=== PATIENT | male | born 1980 | race Caucasian/White ===

== ENCOUNTER 2017-07-30 02:50 | Emergency (ER) | payer SELFPAY ==
[~2017-07-30] VITALS: Ht 185.4 cm; Wt 105.6 kg
[2017-07-30 02:51] VITALS: BP 149/95
[2017-07-30 04:44] LABS: BASOPHILS # (AUTO) 0.02 x10^3/uL (0-0.1); BASOPHILS % (AUTO) 0 % (0-1); EOSINOPHILS # (AUTO) 0.19 x10^3/uL (0-0.4); EOSINOPHILS % (AUTO) 3 % (1-7); LYMPHOCYTES # (AUTO) 1.41 x10^3/uL (1-3.4); LYMPHOCYTES % (AUTO) 23 % (22-44); MD NO; MEAN CORPUSCULAR HEMOGLOBIN 27.3 pg (27.5-34.5); MEAN CORPUSCULAR HGB CONC 33.4 g/dL (33.2-36.2); MEAN CORPUSCULAR VOLUME 81.7 fL (81-97); MEAN PLATELET VOLUME 7.5 fL (7.4-10.4); MONOCYTES % (AUTO) 6 % (2-9); NEUTROPHILS # (AUTO) 4.25 x10^3/uL (1.8-6.8); NEUTROPHILS % (AUTO) 68 % (42-75); PLATELET COUNT 257 x10^3/uL (130-400); RED BLOOD COUNT 4.68 x10^6/uL (4.38-5.82)
[2017-07-30 04:53] LABS: ALANINE AMINOTRANSFERASE 143 U/L (12-78); ALBUMIN 3.5 g/dL (3.4-5.0); ANION GAP 6 mmol/L (5-15); CALCIUM 8.6 mg/dL (8.5-10.1); CHLORIDE 102 mmol/L (98-107); CREATININE 0.88 mg/dL (0.7-1.3)
[2017-07-30 04:55] LABS: ALKALINE PHOSPHATASE 82 U/L (45-117); BILIRUBIN,TOTAL 1.1 mg/dL (0.2-1.0); TOTAL PROTEIN 7.3 g/dL (6.4-8.2)
== END 2017-07-30 06:11 | disposition home or self-care (01) ==
LOC: ED 06:00
DX: T69.029A Immersion foot, unspecified foot, initial encounter (principal); M79.671 Pain in right foot; R60.0 Localized edema; X58.XXXA Exposure to other specified factors, initial encounter; Y93.89 Activity, other specified; Y92.89 Other specified places as the place of occurrence of the external cause; Y99.8 Other external cause status
CPT/HCPCS: 36415; 71046; 80053; 85025; 93005; 99285